=== PATIENT | male | born 1990 | race Caucasian/White ===

== ENCOUNTER 2024-07-15 09:10 | Outpatient (AMB) | payer OTHER, SELFPAY ==
--- OUTSIDE RECORDS SUMMARY | 2024-07-15 09:34 | XMS_ITS | Clinical Summary ---
Author Organization [facility] Address [address] [place] [address] Care Team Providers Care Purler Name Role Phone Unavailable Primary Care Provider Unavailabl e Allergies No known active allergies Medications No known medications Immunizations Name Administration Dates Next Due Tdap 01/17/2016 Social History Tobacco Use Types Packs/Day Years Used Date Smoking Tobacco: Former Alcohol Use Standard Drinks/Week Comments Yes 0 (1 standard drink = 0.6 oz pur e alcohol) occ Sex and Gender Information Value Date Recorded Sex Assigned at Not on file Gender Identity Not on file Sexual Orientation Not on file Last Filed Vital Signs Vital Sign Reading Time Taken Comments Blood Pressure 165/100 01/16/2016 11:49 PM EDT Pulse 96 01/16/2016 11:49 PM EDT Temperature 37.3 ??C (99.2 ??F) 01/16/2016 11:49 PM E DT Respiratory Rate 18 01/16/2016 11:49 PM EDT Oxygen Saturation 99% 01/16/2016 11:49 PM EDT Inhaled Oxygen Concentration - - Weight 111.1 kg (245 lb) 01/16/2016 11:49 PM EDT Height 188 cm (6' 2 ) 01/16/2016 11:49 PM EDT Body Mass Index 31.46 01/16/2016 11:49 PM EDT Plan of Treatment Not on file
[2024-07-15 09:36] VITALS: BP 135/80; PULSE 94; O2SAT 98; BMI 26.8
--- NOTE | 2024-07-15 09:36 | MHC.AM.SUB ---
Vital Signs 07/15/24 09:36 Height 6 ft 2.8 in Weight 213 lb BMI 26.8 BP 135/80 Blood Pressure Location Rt brachial Pulse 94 Pulse Source Pulse Oximeter Pulse Oximetry (%) 98 Oxygen Delivery Method Room Air Intake Visit Reasons: Intake Allergies No Known Allergies Allergy (Verified 07/15/24 13:18) HPI HPI Intake: Details: Patient presents for evaluation and treatment of AUD He reports since the age of 22 alcohol intake has progressevily increased Currently drink 4 Natty Daddies daily --and when he does not drink, he experiences withdrawal sx including tremor and anxiety. He denies any history of treatment Aside from recent medical admission (end of May) for [facility] where he states he was treated with phenobarbitol --states that he did not experience any withdrawal sx during that admission Denies any history of severe withdrawal sx, including seizure He states that during this medical admission he was also newly diagnosed with DM2, which he has been managing with insulin. Monitors BS closesly (has coreen on his phone) In terms of other sx He reports occasional indigestion and nausea with vomiting bile --usually occurs in the morning Denies coffee ground emesis, denies blood with stool Mild tremor (noted today) some anxiety --which he feels is worsened because he does not want to continue drinking Denies any other substance use aside from marijuana, which he has stopped 3 weeks ago Full substance and treatment history collected by RN Patient reports his goal is to abstain from drinking completely Discussed options for withdrawal management He states that admission to ATS facility is not an option for him as he has his children several days per week Discussed at home withdrawal management, using diazepam. Advised patient that this method would only be an option if he has someone who would be willing to monitor him and administer medication. He stated that his mother would be able to and proceeded to call her on face time during appt. T/w explained withdrawal management plan --diazepam taper--explained importance of administering medication as ordered, and assessing for withdrawal sx. Advised mother (and patient) that if withdrawal sx appeared (severe tremor, diaphoresis, n/v) then patient needs to present to ED or call ambulance immediately. Patient and mother both told that medication can not be taken if patient is still drinking alcohol, and advised of risk of respiratory depression. Discussed goal of medication, and importance of resting and low stimulation environment. Mother verbalized understanding and agreeable to administering medication and monitoring patient closely. RN present for end of visit where above information was reviewed, and will call patient's mother to check in daily. Review of Systems Const Reports difficulty sleeping and Reports lethargy GI Denies melena, Denies coffee ground emesis, Reports dyspepsia, Denies loose stools, Denies nausea and Denies vomiting Psych Reports anxiety, Reports depression and Reports difficulty concentrating Physical Exam Vital Signs: Last Vital Signs Pulse 94 07/15/24 09:36 BP 135/80 07/15/24 09:36 Pulse Ox 98 07/15/24 09:36 Oxygen Delivery Method Room Air 07/15/24 09:36 BMI result Body Mass Index 26.8 Const General: cooperative, comfortable and well groomed Nutritional Appearance: average body habitus Orientation/consciousness: patient oriented x3 Neuro General: patient oriented x3 Motor exam (neuro): Tremors during motor activity present Psych Appearance: well kempt Speech and movement: Normal speech and movement present Affect: Sad affect present Attitude: cooperative Thought process: Normal thought process present Thought content: Normal thought content present Insight: Good insight present (Psych) Judgement: Good judgement present (Psych) Assessment & Plan Assessment & Plan (1) Alcohol use disorder, severe, dependence: Code(s): F10.20 - Alcohol dependence, uncomplicated Category: Medical Plan: Patient reports he will start Diazepam taper on Thursday, 07/18. Mother will administer medication and monitor for safety Thiamine and folic acid to be started now RN to call patient's mother (Heike) at [phone], T, W and TH. Plan for patient to check in with RN as well during the week Advised to present to ED or call for ambulance should withdrawal sx present during taper--there should not be any n/v, diaphoresis, or worsening tremor. Naltrexone to be started following completion of taper follow up in 2 weeks labs to be completed in a week Orders: Orders Complete Blood Count Auto Diff 1 Week F10.20 - Alcohol dependence, uncomplicated Comprehensive Met. Panel 1 Week 20 - Alcohol dependence, uncomplicated Medications: New thiamine HCl (vitamin B1) 100 mg PO DAILY 30 tabs 0RF diazepam (Valium) 10 mg orally Day one: take 1 tab every 6 hours. Day 2: Take 1 tab every 8 hours. Day 3: Take 1 tab deidre 12 hours. Day 4: Take 1 tab at bedtime; 10 tabs 0RF naltrexone Start medication after diazepam taper is complete. Take 1/2 tab daily for 3 days, then increase to one tab daily 50 mg PO DAILY 30 tabs 0RF folic acid 1 mg PO DAILY 30 tabs 0RF MAT Intake Nursing Intake Reason for visit: AUD, looking to stop drinking Are you currently using?: Yes What are you taking?: 4 natty daddys (beers a day) When was your last use?: this morning How much?: 1 beer What is your current relationship status?: recent seperation [facility]: See last nuring note from 07/13. Substance Abuse History Substance Abuse History (includes route, frequency and quantity): Alcohol and Marijuana Age of first use: 22 years old Social History Domestic Violence concerns: Denies Children: 4 Do you have a support system?: Yes family Current mode of transportation?: Drives IV Drug Use Have you ever shared needles?: No Have you ever belonged to a needle exchange program?: No Do you buy needles at a pharmacy?: No Have you ever overdosed?: No Have you ever been hospitalized for an overdose?: No Was Naloxone administered?: Not applicable Recovery History Have you had any periods of recovery?: No Have you ever had inpatient treatment for your substance abuse disorder?: No Have you been in an inpatient detoxification program?: No Have you been in an inpatient Rehab/Intermediate house?: No Have you been in an outpatient Methadone Maintenance program?: No Have you been in an outpatient Suboxone Maintenance program?: No Have you been in an AA/NA support program?: No Have you had a Recovery Support Transportation Sales Consultant?: No Have you had Peer Support?: No Behavioral Health History Do you have a current provider? If so, who?: No History of self harming thoughts?: No History of homicidal or suicidal intentions?: No Medical Conditions Endocarditis?: No Skin Infection: No Seizure related to withdrawal or overdose: No Head or brain injury: No Hepatitis A (if yes, have you been treated?): No Hepatitis B (if yes, have you been treated?): No Hepatitis C (if yes, have you been treated?): No HIV (if yes, have you been treated?): No TB (if yes, have you been treated?): No Other: Yes (recently diagnosed with type 2 diabetes) Legal History History of incarceration: No Currently on parole or probation: No Court mandated programs: No Pending court cases: No DCF involvement: No
== END 2024-07-15 10:40 | disposition home or self-care (01) ==
LOC: HO.HCC 09:10
PROVIDERS: Visit Provider Nurse Practitioner Psychiatric/Mental Health
DX: F10.20 Alcohol dependence, uncomplicated (principal)
CPT/HCPCS: 99205

== ENCOUNTER → 2024-07-15 09:10 | Outpatient (BNVA) | payer OTHER, SELFPAY | PROVIDERS: Visit Provider Nurse Practitioner Psychiatric/Mental Health ==

== ENCOUNTER 2024-07-25 16:03 | Outpatient (REF) | payer OTHER, SELFPAY ==
[2024-08-03 13:17] LABS: Codeine, Ur NEGATIVE; Hydrocodone, Ur NEGATIVE; Hydromorphone, Ur NEGATIVE; Morphine, Ur NEGATIVE; Norhydrocodone, Ur NEGATIVE; Noroxycodone, Ur NEGATIVE; Oxycodone, Ur NEGATIVE; Oxymorphone, Ur NEGATIVE
== END 2024-07-25 16:04 | disposition home or self-care (01) ==
LOC: HO.LAB 16:03
PROVIDERS: Visit Provider Nurse Practitioner Psychiatric/Mental Health
DX: F10.20 Alcohol dependence, uncomplicated (principal); Z79.899 Other long term (current) drug therapy
CPT/HCPCS: 80365; G0480

== ENCOUNTER 2024-07-25 16:03 | Outpatient (AMB) | payer OTHER, SELFPAY ==
--- NOTE | 2024-07-25 16:22 | A.OFFVISCC_ITS ---
Vital Signs 07/25/24 16:23 BP 130/90 H Blood Pressure Location Rt brachial Position Sitting Respiration 19 Pulse Oximetry (%) 99 Intake Visit Reasons: MAT Office Allergies No Known Allergies Allergy (Verified 07/15/24 13:18) HPI HPI MAT Office: Details: Patient presents for follow up Completed alcohol withdrawal taper Reports minimal tremor at start of taper Feels that blood sugar has been better regulated since Has been taking naltrexone reports BM and appetite have improved reporting urine has been dark---labs ordered by PCP and completed (cancelled labs here) denies any other sx Review of Systems Const Reports as per HPI and Reports no additional complaints Physical Exam Vital Signs: Last Vital Signs Resp 19 07/25/24 16:23 BP 130/90 H 07/25/24 16:23 Pulse Ox 99 07/25/24 16:23 Const General: cooperative, comfortable and well groomed Nutritional Appearance: average body habitus Orientation/consciousness: patient oriented x3 Limitations: no limitations Neuro General: patient oriented x3 Psych Appearance: well kempt Speech and movement: Normal speech and movement present Affect: normal affect Thought process: Normal thought process present Thought content: Normal thought content present Insight: Good insight present (Psych) Judgement: Good judgement present (Psych) Assessment & Plan Assessment & Plan (1) Alcohol use disorder, severe, dependence: Code(s): F10.20 - Alcohol dependence, uncomplicated Category: Medical Plan: * continue naltrexone * lab work completed with PCP * follow up 2 weeks Orders: Orders Opiates GCMS Expanded, Ur 07/25/24 F10.20 - Alcohol dependence, uncomplicated Medications: Discontinued diazepam (Valium) Discontinued Reason: Patient Completed Course 10 mg orally Day one: take 1 tab every 6 hours. Day 2: Take 1 tab every 8 hours. Day 3: Take 1 tab deidre 12 hours. Day 4: Take 1 tab at bedtime; 10 tabs 0RF
[2024-07-25 16:23] VITALS: BP 130/90; RESP 19; O2SAT 99
--- OUTSIDE RECORDS SUMMARY | 2024-07-25 18:12 | XMS_ITS | Clinical Summary ---
Author Organization [facility] Address [address] [place] [address] Care Team Providers Care Raw Material Handler Name Role Phone Unavailable Primary Care Provider [...]
== END 2024-07-25 16:45 | disposition home or self-care (01) ==
PROVIDERS: Visit Provider Nurse Practitioner Psychiatric/Mental Health
DX: F10.20 Alcohol dependence, uncomplicated (principal)
CPT/HCPCS: 99213

== ENCOUNTER 2024-08-15 13:27 | Outpatient (AMB) | payer OTHER, SELFPAY ==
--- NOTE | 2024-08-15 13:53 | A.OFFVISCC_ITS ---
Intake Visit Reasons: MAT Office Allergies No Known Allergies Allergy (Verified 07/15/24 13:18) HPI HPI MAT Office: Details: Patient presents for AUD treatment follow up Almost one month since his last drink BM improved--in terms of now normal Sleep has been changing in that he feels dreams are vivid But not sleeping as much as he would he would like Reports he was prescribed medication by PCP Unsure of what it was--BUNNY signed today for med list and lab results States urine is no longer dark Scheduled to return to work on September 01 Has been taking apple cider vinegar 2 shots daily to help clear urine--asking for guidance around this. T/w advised patient that this is not something they are familiar with and can't provide guidance. Patient inquiring if appts can be spaced further out due to copay cost. States he feels fine and unsure how long he needs to take medicaiton for Discussed how medication works and lack of cravings and abstience are partly a result of medication --patient verbalized understadning Review of Systems Const Reports as per HPI Physical Exam Const General: cooperative, comfortable and well groomed Nutritional Appearance: average body habitus Orientation/consciousness: patient oriented x3 Limitations: no limitations Neuro General: patient oriented x3 Psych Appearance: well kempt Speech and movement: Normal speech and movement present Affect: normal affect Thought process: Normal thought process present Thought content: Normal thought content present Insight: Good insight present (Psych) Judgement: Good judgement present (Psych) Assessment & Plan Assessment & Plan (1) Alcohol use disorder, severe, dependence: Code(s): F10.20 - Alcohol dependence, uncomplicated Category: Medical Plan: * continue naltrexone * lab work completed with PCP --BUNNY signed today * follow up 6weeks Medications: Changed From naltrexone Start medication after diazepam taper is complete. Take 1/2 tab daily for 3 days, then increase to one tab daily 50 mg PO DAILY 30 tabs 0RF To naltrexone 50 mg PO DAILY 90 tabs 1RF
--- OUTSIDE RECORDS SUMMARY | 2024-08-15 15:38 | XMS_ITS | Clinical Summary ---
Author Organization [facility] Address [address] [place] [address] Care Team Providers Care Zinc Furnace Charger Name Role Phone Unavailable Primary Care Provider [...]
== END 2024-08-15 14:27 | disposition home or self-care (01) ==
LOC: HO.HCC 13:28
PROVIDERS: Visit Provider Nurse Practitioner Psychiatric/Mental Health
DX: F10.20 Alcohol dependence, uncomplicated (principal)
CPT/HCPCS: 99213

== ENCOUNTER → 2024-08-15 13:27 | Outpatient (BNVA) | payer OTHER, SELFPAY | PROVIDERS: Visit Provider Nurse Practitioner Psychiatric/Mental Health | DX: F10.20 Alcohol dependence, uncomplicated (principal) ==

== ENCOUNTER 2024-08-22 09:22 | Emergency (ER) | payer OTHER, SELFPAY ==
[2024-08-22 10:39] VITALS: BP 139/94; PULSE 104; RESP 18; TEMP 36.4; O2SAT 97; BMI 28.1
[2024-08-22 13:36] LABS: MANUAL DIFF FLAG NO
[2024-08-22 13:40] LABS: Basophils Percent Auto 0.4 % (0-2); Eosinophils Percent Auto 0.2 % (0-4); Hematocrit 45.9 % (42.0-52.0); Hemoglobin 16.9 g/dl (14.0-18.0); Imm Gran Abs Auto 0.03 X10*3/uL (0.00-0.03); Imm Gran Pct Auto 0.3 % (0.0-0.4); Lymphocytes Absolute Auto 1.2 X10*3/uL (1.2-4.9); Lymphocytes Percent Auto 12.7 % (20-40); Mean Corpuscular HGB Conc 36.8 g/dl (31.0-36.0); Mean Corpuscular Hemoglobin 35.1 pg (27.0-33.0); Mean Corpuscular Volume 95.2 fL (80.0-98.0); Mean Platelet Volume 10.5 fL (9.4-12.4); Monocytes Absolute Auto 0.9 X10*3/uL (0.1-1.2); Neutrophils Absolute Auto 7.5 x10*3/uL (2.0-8.3); Neutrophils Percent Auto 77.4 % (45-73); Platelet Count 141 X10*3/uL (160-400); Red Blood Count 4.82 X10*6/uL (4.60-5.80); Red Cell Distribution Width 12.3 % (11.0-16.0); White Blood Count 9.7 X10*3/uL (4.8-10.8)
[2024-08-22 13:57] LABS: Acetaminophen LAB < 3 mcg/mL (<30); Alanine Aminotransferase 98 U/L (0-40); Albumin Level 3.8 g/dL (3.5-5.0); Alkaline Phosphatase 209 U/L (39-117); Anion Gap 16 (12-20); Aspartate Amino Transferase 95 U/L (5-37); Bilirubin Total 2.7 mg/dL (0.0-1.0); Blood Urea Nitrogen 6 mg/dL (9-16); Calcium 9.2 mg/dL (8.4-10.2); Carbon Dioxide 28 mmol/L (22-29); Chloride 97 mmol/L (96-108); Creatinine Clr Calc Pharmacy 181.3; Estimated Glomerular Filt Rate > 60; Ethanol < 10 mg/dL; Glucose Random 185 mg/dL (60-115); Magnesium 1.6 mg/dL (1.6-2.6); Salicylate < 5.0 mg/dL (15-30); Sodium 137 mmol/L (135-145); Total Protein 7.5 g/dL (6.5-8.0)
[2024-08-22 19:13] VITALS: BP 139/105; PULSE 98; RESP 18; TEMP 37; O2SAT 95
[2024-08-22 20:19] VITALS: BP 142/103; PULSE 86; RESP 20; TEMP 37; O2SAT 96
--- NOTE | 2024-08-22 20:53 | ED_ITS ---
HPI - General Adult General Chief complaint: General Medical Stated complaint: withdrawls Time Seen by Provider: 08/22/24 20:31 Source: patient Mode of arrival: ambulatory Limitations: no limitations History of Present Illness ED Provider: Bibiana Vasquez NP HPI narrative: patient is a 34-year-old male who presents emergency department requesting assistance with detox from alcohol. He reports approximately 1 month ago he received a diazepam taper from the [facility] which he felt was beneficial he has been taking daily naltrexone. Recently relapsed about 4-5 days ago, was drinking for his birthday. Since last night has been experiencing tremors, nausea and vomiting, generalized weakness, having difficulty sleeping. Symptoms have persisted today. He is requesting job diazepam taper again as this was significantly beneficial for him previously. He has naltrexone still available to him at home. Related Data Previous Rx's ?Medication ?Instructions ?Recorded folic acid 1 mg tablet 1 mg PO DAILY #30 tabs 07/15/24 thiamine HCl (vitamin B1) 100 mg 100 mg PO DAILY #30 tabs 07/15/24 tablet naltrexone 50 mg tablet 50 mg PO DAILY #90 tabs 08/15/24 diazepam 10 mg tablet See Rx Instructions .Route 08/22/24 .COMPLEX #10 tabs Allergies Allergy/AdvReac Type Severity Reaction Status Date / Time No Known Allergies Allergy Verified 08/22/24 10:40 Review of Systems 2 Review of Systems: Yes all other systems are reviewed and are negative PMFSH Past Medical History Attestation statement: The following information was validated with the patient. Source: old records reviewed Medical History Gangrene Diabetes Social History Social History Smoked in Last 30 Days: No Use of substances other than those prescribed or required for medical reasons: No Advance Directives: No Advance Directives Information Provided: Yes Do you have a plan to hurt others: No Plan Physical Exam ED Vital Signs: Vital Signs - 24 hr 08/22/24 10:39 08/22/24 19:13 08/22/24 20:19 Temperature 97.6 F 98.6 F 98.6 F Pulse Rate 104 H 98 86 Respiratory Rate 18 18 20 Blood Pressure 139/94 H 139/105 H 142/103 H Pulse Oximetry 97 95 96 Oxygen Delivery Method Room Air Room Air Room Air BMI result Body Mass Index 28.1 Appearance: Alert.?Oriented to person, place and time. No acute distress.?Normal affect. Eyes: Pupils equal, round and reactive to light.? ENT: Pharynx normal.?? Neck: Normal inspection.? Neck supple.?? CVS: Heart sounds normal. Normal heart rate and rhythm.? Pulses normal.?? Respiratory: No respiratory distress.? Lung sounds clear to auscultation bilaterally?? Abdomen: Soft and non-tender. Normoactive bowel sounds. Skin: Skin warm and dry.? Normal skin color.? ? Extremities: No lower extremity edema.? Mild motor tremor to the upper extremities Neuro: Moves all extremities spontaneously. Sensation intact bilaterally. CN II- XII intact. No focal neuro deficits. Ambulates with normal steady gait. Medical Decision Making Medical Decision Making [facility] Narrative: patient is a 34-year-old male with past medical history of alcohol use disorder who presents emergency department endorsing symptoms consistent with alcohol withdrawal as per HPI, symptom onset last night in the setting of 3-4 days without ETOH, persistent throughout today. He declines interest in inpatient detox at this time. Denies history of alcohol withdrawal seizures. Requesting diazepam taper as this has previously been helpful for him to take in addition to the naltrexone he has previously been prescribed. I feel that this is reasonable. He has a safe ride home tonight. Denies recreational drug usage. Will follow-up outpatient with [facility]. Differential Diagnosis Differential Diagnoses: The differential diagnosis associated with the presentation includes ( Alcohol use disorder, alcohol withdrawal,) Admission/Observation Consideration of admission/observation: Escalation of care including admission/observation considered Lab Data [facility] Lab Attestation statement: I reviewed the patient's lab results. CBC is without leukocytosis anemia, has a mild thrombocytopenia. No electrolyte derangement. No DEDE. Transaminitis, no prior levels available for comparison, benign abdominal examination, suspect likely secondary to his alcohol use disorder, lower suspicion for acute hepatobiliary pathology. 08/22/24 13:30 08/22/24 13:30 Labs: Lab Results 08/22/24 Range/Units 13:30 WBC 9.7 (4.8-10.8) X10*3/uL RBC 4.82 (4.60-5.80) X10*6/uL Hgb 16.9 (14.0-18.0) g/dl Hct 45.9 (42.0-52.0) % MCV 95.2 (80.0-98.0) fL MCH 35.1 H (27.0-33.0) pg MCHC 36.8 H (31.0-36.0) g/dl RDW 12.3 (11.0-16.0) % Plt Count 141 L (160-400) X10*3/uL MPV 10.5 (9.4-12.4) fL Immature Gran % (Auto) 0.3 (0.0-0.4) % Neut % (Auto) 77.4 H (45-73) % Lymph % (Auto) 12.7 L (20-40) % [place] % (Auto) 9.0 (2-11) % Eos % (Auto) 0.2 (0-4) % Baso % (Auto) 0.4 (0-2) % Lymph # (Auto) 1.2 (1.2-4.9) X10*3/uL [place] # (Auto) 0.9 (0.1-1.2) X10*3/uL Eos # (Auto) 0.0 (0.0-0.4) X10*3/uL Baso # (Auto) 0.0 (0.0-0.2) X10*3/uL Abs Immat Gran (auto) 0.03 (0.00-0.03) X10*3/uL Absolute Neuts (auto) 7.5 (2.0-8.3) x10*3/uL Absolute Nucleated RBC 0.000 (0.0-0.012) X10*3/uL Nucleated RBC % (auto) 0.0 (0.0-0.2) /100WBC Sodium 137 (135-145) mmol/L Potassium 4.0 (3.3-5.1) mmol/L Chloride 97 (96-108) mmol/L Carbon Dioxide 28 (22-29) mmol/L Anion Gap 16 (12-20) BUN 6 L (9-16) mg/dL Creatinine 0.73 (0.5-1.4) mg/dL Estim Creat Clear Calc 181.3 Estimated GFR > 60 Random Glucose 185 H (60-115) mg/dL Calcium 9.2 (8.4-10.2) mg/dL Magnesium 1.6 (1.6-2.6) mg/dL Total Bilirubin 2.7 H (0.0-1.0) mg/dL AST 95 H (5-37) U/L ALT 98 H (0-40) U/L Alkaline Phosphatase 209 H (39-117) U/L Total Protein 7.5 (6.5-8.0) g/dL Albumin 3.8 (3.5-5.0) g/dL Salicylates < 5.0 L (15-30) mg/dL Acetaminophen < 3 (<30) mcg/mL Ethyl Alcohol < 10 mg/dL External Record Review External record reviewed: Outpatient record and Other I attest that I have reviewed patients MassPAT, and at the time prescribing the patient a controlled substance is appropriate based off of patients diagnosis and treatment plan. Prescription Management I considered prescription management with: Other ( See narrative above) Chronic Conditions Patient?s care impacted by: Other ( see narrative above) Discharge Plan Discharge Clinical Impression: Alcohol use disorder, severe, dependence Patient Disposition: Home, Self-Care Instructions: Alcohol Withdrawal (ED), Alcohol Use Disorder (ED) Additional Instructions: A prescription for diazepam has been sent to your pharmacy to use as a taper as you have done previously. It is imperative that you contact [facility] tomorrow morning to arrange for a follow-up appointment. If at any time you feel as though your outpatient management is not sufficient and feel that you will benefit from a more structured setting you should seek assistance with doing so. Had an time you may return to emergency department new or worsening symptoms or concerns. You should not drive, drink alcohol, or work while taking this medication. Prescriptions: New diazepam 10 mg tablet See Rx Instructions .ROUTE .COMPLEX Qty: 10 0RF Rx Instructions: 10 mg orally Day one: take 1 tab every 6 hours. Day 2: Take 1 tab every 8 hours. Day 3: Take 1 tab every 12 hours. Day 4: Take 1 tab at bedtime No Action naltrexone 50 mg tablet 50 mg PO DAILY Qty: 90 1RF thiamine HCl (vitamin B1) 100 mg tablet 100 mg PO DAILY Qty: 30 0RF folic acid 1 mg tablet 1 mg PO DAILY Qty: 30 0RF Referrals: Edward Spaulding MD [Primary Care Provider] - Barbara Rivera CNP [Nurse Practitioner] - Print Language: Setswana
[2024-08-22] MEDS: diazePAM 5 MG TABLET 10 MG PO (22:36)
[2024-08-22 22:37] VITALS: BP 142/103; PULSE 86; RESP 20; TEMP 37; O2SAT 96
== END 2024-08-22 22:37 | disposition home or self-care (01) ==
PROVIDERS: Physician Assistant Medical; Emergency Provider Emergency Medicine; PCP Internal Medicine
DX: F10.20 Alcohol dependence, uncomplicated (principal); Y90.0 Blood alcohol level of less than 20 mg/100 ml; R25.1 Tremor, unspecified; R11.2 Nausea with vomiting, unspecified; Z51.81 Encounter for therapeutic drug level monitoring; Z71.41 Alcohol abuse counseling and surveillance of alcoholic; Z79.899 Other long term (current) drug therapy
CPT/HCPCS: 36415; 80053; 80143; 80179; 80307; 83735; 85025; 99283; 99284

== ENCOUNTER → 2024-09-08 09:23 | Outpatient (BNVA) | payer OTHER, SELFPAY | PROVIDERS: PCP Internal Medicine ==

== ENCOUNTER 2024-10-07 09:29 | Outpatient (AMB) | payer OTHER, SELFPAY ==
--- NOTE | 2024-10-07 09:32 | MHC.OFFVIS ---
Vital Signs 10/07/24 09:37 Height 6 ft 2 in Pulse 101 H Pulse Source Pulse Oximeter Pulse Oximetry (%) 98 Oxygen Delivery Method Room Air Intake Visit Reasons: MAT Allergies No Known Allergies Allergy (Verified 10/07/24 09:37) HPI HPI MAT: Details: He is trying to stop alcohol. He is concerned about withdrawal symptoms. He has had luck with benzodiazepines improving tachycardia but has had twice now and concern over benzodiazepine dependency. [facility] Medical History Gangrene Diabetes Review of Systems Const All systems reviewed & are unremarkable except as noted in HPI and below Physical Exam Vital Signs: Last Vital Signs Pulse 101 H 10/07/24 09:37 Pulse Ox 98 10/07/24 09:37 Oxygen Delivery Method Room Air 10/07/24 09:37 Const General: cooperative Assessment & Plan Assessment & Plan (1) Alcohol use disorder, severe, dependence: Comment: He has repeat episodes of starting drinking to take one beer and inability to stop He has friend AA he talks to He is adamant he cant go inpatient detox because has four children 13 and under and cant take time off from work at [employer] either Code(s): F10.20 - Alcohol dependence, uncomplicated Category: Medical Plan: Very limited benzo for absolute need ,nonresponsive to clonidine Plan Taper clonidine dose prn tachycardia Benzo limited Atarax prn. See in one months Medications: New diazepam (Valium) 10 mg PO BEDTIME PRN 5 tabs 0RF sleep hydroxyzine HCl 25 mg PO BID PRN 10 tabs 1RF anxiety 5 days clonidine HCl 0.1 mg PO TID 15 tabs 1RF 5 days Coding Level of Care Code Est Pt Level 3 (81081) Diagnoses Alcohol use disorder, severe, dependence F10.20
[2024-10-07 09:37] VITALS: PULSE 101; O2SAT 98
--- OUTSIDE RECORDS SUMMARY | 2024-10-07 09:49 | XMS_ITS | Clinical Summary ---
Author Organization [facility] Address [address] [place] [address] Care Team Providers Care Business And Marketing Teacher Name Role Phone Unavailable Primary Care Provider [...]
== END 2024-10-07 10:18 | disposition home or self-care (01) ==
LOC: HO.HCC 09:30
PROVIDERS: PCP Internal Medicine; Visit Provider Internal Medicine
DX: F10.20 Alcohol dependence, uncomplicated (principal)
CPT/HCPCS: 99213

== ENCOUNTER → 2024-10-07 09:29 | Outpatient (BNVA) | payer OTHER, SELFPAY | PROVIDERS: PCP Internal Medicine; Visit Provider Internal Medicine ==